=== PATIENT | female | born 1995 | race Caucasian/White ===

== ENCOUNTER 2019-05-09 22:55 | Emergency (ER) | payer MEDICAID, SELFPAY ==
[2019-05-09 23:12] VITALS: BP 132/93; PULSE 78; RESP 18; TEMP 36.7; O2SAT 100; BMI 31.4
--- NOTE | 2019-05-09 23:28 | USR_ITS ---
PROCEDURE INFORMATION: Exam: US First Trimester, Transabdominal and US , Transvaginal Exam date and time: 05/10/2019 12:08 AM Age: 23 years old Clinical indication: Lmp or gestational age (in weeks): 10w 1 day by lmp; Other: Spotting; ; Additional info: Vag bleed TECHNIQUE: Imaging protocol: Real-time transabdominal obstetrical ultrasound of the maternal pelvis and a first trimester , less than 14 weeks 0 days, with image documentation. Transvaginal imaging was used for better evaluation of the fetus and adnexa. COMPARISON: No relevant prior studies available. FINDINGS: GESTATION: Gestation: There is a yolk sac. Heart rate: cardiac activity is identified with a heart rate of 128 bpm. Placenta: Unremarkable. No subchorionic bleed. Amniotic fluid: Amniotic and coelomic fluid are normal for gestational age. BIOMETRY: Estimated gestational age: The calculated gestational age is 5 weeks 6 days [place]-Rump length: The crown-rump length is 0.29 cm. This gives a gestational age of 5 weeks 6 days. MATERNAL: Uterus: Unremarkable. Cervix: Unremarkable. Right adnexa: The right ovary is unremarkable in appearance measuring 2.0 x 1.5 x 2.3 cm. Subcentimeter right ovarian follicular cysts are noted. Right ovarian Doppler demonstrates appropriate waveforms. There is appropriate right ovarian color flow and no torsion. No adnexal fluid collection or mass. Left adnexa: The left ovary is unremarkable in appearance. There are subcentimeter left ovarian cyst. Left ovary measures 2.6 x 2.4 x 2.0 cm. Intraperitoneal: No intraperitoneal free fluid. US/US OB <= 14 weeks fetus [id number] IMPRESSION: Single live intrauterine gestation with good cardiac activity and calculated gestational age of 5 weeks 6 days.
[2019-05-09 23:44] VITALS: BP 133/68; PULSE 72; RESP 18; O2SAT 99
--- NOTE | 2019-05-09 23:46 | ED_ITS ---
HPI - General: Chief complaint: Vaginal Bleeding Stated complaint: CRAMPING,VAGINAL BLEEDING Time Seen by Provider: 05/09/19 23:12 Source: patient Mode of arrival: ambulatory Limitations: no limitations History of Present Illness: HPI Narrative: Patient comes in today for a 2-day history of low back pain and some vaginal spotting. Patient states that she was seen in the emergency department [place] last night and was diagnosed with urinary tract infection. Patient knows she is but does not know how far along she is and is concerned that she may be miscarrying. Date of Last Menstrual Period: 02/27/19 Related Data: : 3 Review of Systems General: Reports: 10 or more systems reviewed and unremarkable except in HPI and below : Reports: vaginal bleeding PFSH ED PFSH: Statuses (acute, chronic, etc) shown below reflect problem list status as previously entered and may not be historically accurate Social History Smoking and tobacco status: current every day smoker Female Reproductive History: Date of last menstrual period: 02/27/19 : 3 Physical Exam Const: COMMON NORMALS: no apparent distress and oriented x3 GENERAL APPEARANCE: cooperative HENMT: COMMON NORMALS: normocephalic, external ears normal, EAC's normal, TM's normal bilaterally and external nose normal HEAD & SCALP: normal to inspection and normocephalic FACE & SINUS: normal facial exam NOSE: external nose normal GENERAL EAR: hearing not grossly impaired EXTERNAL EAR: Yes external ears normal EXTERNAL AUDITORY CANAL: EAC's normal TYMPANIC MEMBRANE: TM's normal bilaterally MOUTH: oral and palatal mucosa normal THROAT: posterior oropharynx normal Eye: COMMON NORMALS: PERRL and EOMs intact bilaterally PUPIL: Yes PERRL Neck/C-Spine: COMMON NORMALS: full ROM and no lymphadenopathy Lymph: LYMPHATIC: no lymphedema noted Chest: COMMONS NORMALS: inspection of chest normal and palpation of chest normal Resp: COMMON NORMALS: normal respiratory effort and clear to auscultation bilaterally AUSCULTATION: clear to auscultation bilaterally Cardio: COMMON NORMALS: regular rate and regular rhythm RATE: regular rate RHYTHM: regular rhythm GI: COMMON NORMALS: normal to inspection, nondistended, normoactive bowel sounds and non-tender : COMMON NORMALS: Yes no CVA tenderness BLADDER/KIDNEY EXAM: Yes no CVA tenderness Back/Pelvis: COMMON NORMALS: no CVA tenderness and thoracic and lumbar spine normal to inspection Extremity: COMMON NORMALS: normal to inspection GENERAL: No edema Neuro: COMMON NORMALS: oriented x3, moves all extremities and no focal motor deficits Psych: COMMON NORMALS: mental status grossly normal and cooperative Skin: COMMON NORMALS: no rashes or lesions noted GENERAL SKIN EXAM: no rashes or lesions noted Course Vital Signs: Vital signs: Vital Signs Temperature 98.1 F 05/09/19 23:12 Pulse Rate 72 05/09/19 23:44 Respiratory Rate 18 05/09/19 23:44 Blood Pressure 133/68 05/09/19 23:44 Pulse Oximetry 99 05/09/19 23:44 MDM - OB/Uterine Contractions MDM Narrative: Medical decision making narrative: Patient comes in today due to vaginal spotting during first trimester . Exam notes respirations are even lungs are clear to auscultation. Abdomen is soft nontender. Bowel sounds are present. No signs of serious illness or injury was noted. Differential diagnosis includes threatened miscarriage, urinary tract infection, vaginitis. Laboratory values were insignificant. hCG level is above 5000 and at the level for between 5 and 6 weeks. Ultrasound noted a heart rate of 120 with a intrauterine and no signs of subchorionic hemorrhage. Reviewed exam with patient with recommendations for follow-up with GRAIN TRIMMER or return to the ER for worsening signs and symptoms. Patient reports understanding and agreed to plan. Lab Data: Labs: Lab Results 05/09/19 05/09/19 05/09/19 Range/Units 23:31 23:31 23:31 WBC 9.9 (4.0-10.0) 10^3/ uL RBC 4.13 (4.1-5.3) 10^6/u L Hgb 10.5 L (11.5-15.3) g/dL Hct 33.2 L (37.0-47.0) % MCV 80.4 L (81-99) fL MCH 25.4 L (28.0-34.0) pg MCHC 31.6 (30.0-36.0) g/dL RDW 15.1 (12.1-15.1) % Plt Count 389 (130-400) 10^3/c mm MPV 9.3 (7.4-10.4) fL Neut % (Auto) 70.4 % Lymph % (Auto) 22.5 % Barren % (Auto) 6.0 % Eos % (Auto) 0.7 % Baso % (Auto) 0.2 % Neut # (Auto) 6.9 (1.8-7.7) 10^3/u L Lymph # (Auto) 2.2 (0.8-4.8) 10^3/u L Barren # (Auto) 0.6 (0.2-0.9) 10^3/u L Eos # (Auto) 0.1 (0.0-0.8) 10^3/u L Baso # (Auto) 0.0 (0.0-0.1) 10^3/u L Nucleated RBC % (a uto) 0 % Nucleated RBCs # 0.0 /100WBC Sodium 137 (136-145) mmol/L Potassium 3.4 L (3.5-5.1) mmol/L Chloride 100 (98-107) mmol/L Carbon Dioxide 27 (22-29) mmol/L Anion Gap 13.4 (5-19) BUN 8 (6-20) mg/dL Creatinine 0.8 (0.5-0.9) mg/dL GFR Calculation 87.4 L (90-130) mL/min Glucose 90 (74-109) mg/dL Calcium 10.0 (8.5-10.5) mg/dL Total Bilirubin 0.2 (0.15-1.2) mg/dL AST 13 (0-32) U/L ALT 12 (0-33) U/L Alkaline Phosphata se 64 (35-105) IU/L Total Protein 7.7 (6.6-8.7) g/dL Albumin 4.2 (3.5-5.2) g/dL Globulin 3.5 (1.3-4.6) g/dL Ser , Jeremy i-Qnt 5423.00 mIU/mL Urine Color (Yellow) Urine Appearance (CLEAR) Urine pH (5-7) Ur Specific Gravit y (1.005-1.030) Urine Protein (Negative) Urine Glucose (UA) (Normal) Urine Ketones (Negative) Urine Occult Blood (Negative) Urine Nitrate (Negative) Urine Bilirubin (NEGATIVE) Urine Urobilinogen (Negative) mg/dL Ur Leukocyte Yudelka ase (Negative) Urine RBC (0-2) /hpf Urine WBC (0-5) /hpf Ur Squamous Epith Cells (0-5) Urine Bacteria (NONE) Blood Type A Positive 05/09/19 Range/Units 23:52 WBC (4.0-10.0) 10^3/ uL RBC (4.1-5.3) 10^6/u L Hgb (11.5-15.3) g/dL Hct (37.0-47.0) % MCV (81-99) fL MCH (28.0-34.0) pg MCHC (30.0-36.0) g/dL RDW (12.1-15.1) % Plt Count (130-400) 10^3/c mm MPV (7.4-10.4) fL Neut % (Auto) % Lymph % (Auto) % Barren % (Auto) % Eos % (Auto) % Baso % (Auto) % Neut # (Auto) (1.8-7.7) 10^3/u L Lymph # (Auto) (0.8-4.8) 10^3/u L Barren # (Auto) (0.2-0.9) 10^3/u L Eos # (Auto) (0.0-0.8) 10^3/u L Baso # (Auto) (0.0-0.1) 10^3/u L Nucleated RBC % (a uto) % Nucleated RBCs # /100WBC Sodium (136-145) mmol/L Potassium (3.5-5.1) mmol/L Chloride (98-107) mmol/L Carbon Dioxide (22-29) mmol/L Anion Gap (5-19) BUN (6-20) mg/dL Creatinine (0.5-0.9) mg/dL GFR Calculation (90-130) mL/min Glucose (74-109) mg/dL Calcium (8.5-10.5) mg/dL Total Bilirubin (0.15-1.2) mg/dL AST (0-32) U/L ALT (0-33) U/L Alkaline Phosphata se (35-105) IU/L Total Protein (6.6-8.7) g/dL Albumin (3.5-5.2) g/dL Globulin (1.3-4.6) g/dL Ser , Jeremy i-Qnt mIU/mL Urine Color Yellow (Yellow) Urine Appearance Cloudy (CLEAR) Urine pH 7 (5-7) Ur Specific Gravit y 1.010 (1.005-1.030) Urine Protein Neg (Negative) Urine Glucose (UA) Norm (Normal) Urine Ketones Negative (Negative) Urine Occult Blood 2+ H (Negative) Urine Nitrate Negative (Negative) Urine Bilirubin Neg (NEGATIVE) Urine Urobilinogen Norm (Negative) mg/dL Ur Leukocyte Yudelka ase 2+ H (Negative) Urine RBC 0-4 H (0-2) /hpf Urine WBC 0-4 H (0-5) /hpf Ur Squamous Epith Cells 0-4 H (0-5) Urine Bacteria 1+ H (NONE) Blood Type Discharge Plan Discharge Patient Disposition: Home, Self-Care Clinical Impression: Threatened miscarriage in early Discharge Orders: Discharge Order (Routine); Ordered 05/10/19 Ordered By: Pritesh Rocha Discharge Diet: Usual diet Discharge Activity: Resume usual activity Patient Instructions: Threatened Miscarriage (ED) Activity Restrictions/Additional Instructions: Drink plenty of water Acetaminophen for pain Heat packs for discomfort Follow-up with ob-java web services developer for further treatment Discharge Date/Time: 05/09/19 23:47 Coding Level of Care Code ED Absorber Operator for Sohail Caldwell Exam Problem Focused
[2019-05-09 23:59] LABS: Basophils % 0.2 %; Eosinophils # 0.1 10^3/uL (0.0-0.8); Eosinophils % 0.7 %; Hematocrit 33.2 % (37.0-47.0); Hemoglobin 10.5 g/dL (11.5-15.3); Lymphocytes # 2.2 10^3/uL (0.8-4.8); Lymphocytes % 22.5 %; Mean Corpuscular HGB Conc 31.6 g/dL (30.0-36.0); Mean Corpuscular Hemoglobin 25.4 pg (28.0-34.0); Mean Corpuscular Volume 80.4 fL (81-99); Mean Platelet Volume 9.3 fL (7.4-10.4); Monocytes # 0.6 10^3/uL (0.2-0.9); Neutrophils # 6.9 10^3/uL (1.8-7.7); Neutrophils % 70.4 %; Nucleated Red Blood Cells % 0 %; Platelet Count 389 10^3/cmm (130-400); Red Blood Count 4.13 10^6/uL (4.1-5.3); Red Cell Distribution Width 15.1 % (12.1-15.1); White Blood Count 9.9 10^3/uL (4.0-10.0)
[2019-05-10 00:20] LABS: Bacteria Urine 1+; Bilirubin Urine Neg (NEGATIVE); Blood Urine 2+ (Negative); Glucose Urine UA Norm (Normal); Ketones Urine Negative (Negative); Leukocyte Esterase Urine 2+ (Negative); Nitrate Urine Negative (Negative); Protein Urine Neg (Negative); RBC Urine 0-4 /hpf (0-2); Squamous Epithelial Cell Urine 0-4 (0-5); Urine Appearance Cloudy (CLEAR); Urine Color Yellow (Yellow); Urobilinogen Urine Norm (Negative); WBC Urine 0-4 /hpf (0-5); pH Urine 7 (5-7)
[2019-05-10 00:27] LABS: Alanine Aminotransferase 12 U/L (0-33); Albumin Level 4.2 g/dL (3.5-5.2); Alkaline Phosphatase 64 IU/L (35-105); Anion Gap 13.4 (5-19); Aspartate Amino Transferase 13 U/L (0-32); Blood Urea Nitrogen 8 mg/dL (6-20); Carbon Dioxide 27 mmol/L (22-29); Chloride 100 mmol/L (98-107); Globulin 3.5 g/dL (1.3-4.6); Glomerular Filtration Rate 87.4 mL/min (90-130); Glucose 90 mg/dL (74-109); Potassium 3.4 mmol/L (3.5-5.1); Sodium 137 mmol/L (136-145); Total Bilirubin 0.2 mg/dL (0.15-1.2); Total Protein 7.7 g/dL (6.6-8.7)
--- NOTE | 2019-05-12 09:58 | DCPLANNER ---
credit control manager had message to schedule a follow up appointment for patient with [facility]. credit control manager called [facility], spoke with Shannon, gave clinic patients information. credit control manager was told that patients information would be printed and reviewed. Clinic will call behavioral health case manager and patient with appointment information.
== END 2019-05-10 01:02 | disposition home or self-care (01) ==
LOC: ER 23:36
PROVIDERS: Emergency Provider Nurse Practitioner Family
DX: O20.0 Threatened abortion (principal); Z3A.01 Less than 8 weeks gestation of pregnancy; O99.331 Smoking (tobacco) complicating pregnancy, first trimester; F17.210 Nicotine dependence, cigarettes, uncomplicated
CPT/HCPCS: 36415; 76801; 80053; 81001; 84702; 85025; 86900; 99281; 99283

== ENCOUNTER 2021-01-16 09:31 | Outpatient (CLI) | payer MEDICAID, SELFPAY ==
[2021-01-16 11:25] LABS: Basophils % 0.1 %; Eosinophils # 0.1 10^3/uL (0.0-0.8); Eosinophils % 1.7 %; Hematocrit 30.4 % (37.0-47.0); Hemoglobin 9.4 g/dL (11.5-15.3); Lymphocytes # 1.3 10^3/uL (0.8-4.8); Lymphocytes % 15.9 %; Mean Corpuscular HGB Conc 30.9 g/dL (30.0-36.0); Mean Corpuscular Hemoglobin 25.2 pg (28.0-34.0); Mean Corpuscular Volume 81.5 fl (81-99); Monocytes # 0.5 10^3/uL (0.2-0.9); Monocytes % 5.9 %; Neutrophils # 6.16 10^3/uL (1.8-7.7); Neutrophils % 76.2 %; Nucleated Red Blood Cells % 0 %; Platelet Count 427 10^3/cmm (130-400); Red Blood Count 3.73 10^6/uL (4.1-5.3); Red Cell Distribution Width 23.6 % (12.1-15.1); Reticulocyte % 1.5 % (0.5-2.0); White Blood Count 8.1 10^3/uL (4.0-10.0)
[2021-01-16 12:05] LABS: Alanine Aminotransferase 14 U/L (0-33); Albumin Level 3.3 g/dL (3.5-5.2); Alkaline Phosphatase 57 IU/L (35-105); Anion Gap 13.1 (5-19); Aspartate Amino Transferase 12 U/L (0-32); Blood Urea Nitrogen 5 mg/dL (6-20); Calcium 8.5 mg/dL (8.5-10.5); Carbon Dioxide 29 mmol/L (22-29); Chloride 102 mmol/L (98-107); Ferritin 221 ng/mL (15-150); Globulin 3.8 g/dL (1.3-4.6); Glomerular Filtration Rate 191.5 mL/min (90-130); Glucose 75 mg/dL (65-115); Iron 14 ug/dL (37-145); Osmolality Calculated 288 mOsm/kg (285-295); Percent Saturation 7.2 % (20-50); Potassium 3.1 mmol/L (3.5-5.1); Sodium 141 mmol/L (136-145); Total Bilirubin 0.4 mg/dL (0.15-1.2); Total Iron Binding Capacity 192 mcg/dl; Total Protein 7.1 g/dL (6.6-8.7); Unsaturated Iron Binding 178 ug/dL (112-347)
[2021-01-16 12:20] LABS: Vitamin B12 409 pg/mL (232-1245)
--- NOTE | 2021-01-18 18:36 | ONC CON_ITS ---
Dr. Morales New Patient Note Patient: Linsey Lux Unit #: [id number]: [id number] Dicatated By: Julia Morales M.D.Date of Visit: Jan 16, 2021 Onc MED New Patient/Consult Referring Physician: Major Alcaraz N.P. History of Present Illness: Ms. Linsey Lux, is a 25-year-old female with a history of iron deficiency anemia, diagnosed during , at that time, at that time patient took oral iron but could not tolerate due to GI intolerance. As per patient she tried again couple of times but every time it would give her, epigastric pain, indigestion, nausea. As per patient in November 2020, she developed progressive shortness of breath, palpitation on exertion subsequently abdominal fullness and pain, patient has history of irritable bowel syndrome so she went to hospital in [place], where she underwent CT scan of abdomen, as per patient there was a concern for perforation so she was airlifted to hospital in [place] where she underwent blood transfusion and also given iron infusion x1, with that she felt better, while she was treated with supportive care, colonoscopy was considered but patient signed out AMA and subsequently her follow-up labs done in [facility] office on November 28, 2020 which showed hemoglobin around 11 g while she is being treated with oral Flagyl and Cipro, patient was referred to general surgery in [facility], her repeat lab work-up done on December 26, 2020 showed iron 17, iron saturation 7%, TIBC 229, creatinine 0.67 albumin 3.3 otherwise normal CMP repeat labs done on January 02, 2021 showed white blood count 7.8, hemoglobin 10.1 g medical 33.7 MCV 79.3, platelets 469,000, as per patient she was given oral iron but she could not tolerate, then her primary care physician try to give her parenteral iron but somehow her insurance did not approve it so she was referred to hematology clinic for evaluation and management. Patient has history of chronic back pain due to arthritis for which she take meloxicam She also history of GERD,, anxiety disorder. Family history significant for Crohn's disease in maternal uncle and great-grandmother. , No fever chills, no melena hematochezia, no hemoptysis or hematemesis but off-and-on history of constipation alternating with diarrhea, patient attributed that to her irritable bowel syndrome. Denies any history of heavy menstrual in fact they are irregular. Denies any history of jaundice, denies any history of hematuria, denies any history of hemorrhoids. Denies any night sweats, denies any weight loss, denies any history of hemoptysis or hematemesis. Past Medical History: Ms. Lux's medical history consists of anxiety, bipolar depression, gastroesophageal reflux disease, irritable bowel syndrome, and migraine headaches. Past Surgical History: Ms. Lux's surgical history is unremarkable. Medications: Meloxicam 1 Tablet (of 7.5 mg) Oral daily Allergies: No Known Allergies. Social History: Ms. Lux is . She is a daily smoker who smokes 1.0 pack/day. She has no history of drinking. Family History: There is no documented family history. Review Of Symptoms: Review of Systems is not available for this patient. Vital Signs: Performed on Jan 16, 2021 12:10: 0, 0, 23.63, 1.51 sq.m, 60 in, 99 %, 76 /min, 18 /min, 122/84 mm(hg), 98.3 F (LOW), and 121 lbs (HIGH). Performance Status: 0 - Fully active, able to carry on all predisease activities without restrictions. (ECOG) Physical Examination: ENMT - No mouth sores, no thrush, no jaundice, pale conjunctiva, Respiratory - Lungs are clear to auscultation, Cardiovascular - Regular rate and rhythm of heart, Abdomen - Soft, bowel sounds present, Extremities - No visible edema. Lab/Imaging: Most recent lab results are not available for this patient. Impression: Microcytic hypochromic anemia due to iron deficiency which could be due to chronic malabsorption versus chronic GI blood loss status post 2 units of packed RBC and iron infusion For symptomatic anemia, during hospitalization in [place] in November 2020 History of iron deficiency during , tried oral iron but discontinued due to GI intolerance History of irritable bowel syndrome History of anxiety/depression History of chronic back due to arthritis, on NSAIDs Plan: Discussed with patient regarding her labs white blood count 8.1 hemoglobin 9.4 g medical 30.4 platelets 427,000 MCV 81.5 reticulocyte count 1.5, Clinically, patient has mild generalized weakness and fatigue probably due to progressive iron deficiency anemia, etiology remains unclear e.g. malabsorption versus chronic GI blood loss, work-up is in progress, as per patient she is scheduled for EGD and colonoscopy on February 01, 2021 in [place], now being followed by general surgery in [place] for possible GI pathology as patient was referred to [facility] from her local hospital with impression of GI perforation or Crohn's disease or appendicitis but patient signed out AMA without completing work-up so she was referred to general surgery in [place] for further evaluation. At this point, due to progressive iron deficiency anemia, and history of GI intolerance to oral iron, recently she was given parenteral iron which she tolerated well with good response, hemoglobin gone up to 11 g, she was also given blood transfusion., Will consider Injectafer 750 mg IV weekly x2, She return to clinic 1 month after second dose with CBC and iron studies, by that time she will have EGD and colonoscopy done, will review that too. Signed By: Julia Morales M.D. <<Signature on File>>
== END 2021-01-16 09:32 | disposition home or self-care (01) ==
LOC: ONCMED 09:36
PROVIDERS: Visit Provider Internal Medicine Hematology & Oncology
DX: D50.9 Iron deficiency anemia, unspecified (principal); K58.9 Irritable bowel syndrome, unspecified; F17.210 Nicotine dependence, cigarettes, uncomplicated; F41.9 Anxiety disorder, unspecified; F32.9 Major depressive disorder, single episode, unspecified; M47.9 Spondylosis, unspecified; Z79.1 Long term (current) use of non-steroidal anti-inflammatories (NSAID)
CPT/HCPCS: 36415; 80053; 82607; 82728; 83540; 83550; 85025; 85045; 99205

== ENCOUNTER → 2021-06-21 14:54 | Outpatient (BNVA) | payer MEDICAID, SELFPAY | PROVIDERS: Visit Provider Surgery | DX: Z11.52 Encounter for screening for COVID-19 (principal); Z20.822 Contact with and (suspected) exposure to COVID-19 | CPT/HCPCS: 87635 ==

== ENCOUNTER 2021-06-22 08:17 | Day surgery (SDC) | payer MEDICAID, SELFPAY ==
[2021-06-21 10:53] VITALS: BMI 18.3
--- NOTE | 2021-06-22 08:39 | P.ANESASSM_ITS ---
Pre-Anesthetic Assessment Height/Weight: Height 1.52 m Weight 42.638 kg Preop Diagnosis: Nausea vomiting and abdominal pain Operation Date: 06/22/21 10:00 Proposed Procedures p EGD 74757/r10.9/r63.4(Not Applicable) - Nestor Chan MD Familial anesthetic complications: Recalls some discomfort/pain during colonoscopy in [place] Was Beta Patricio taken within 24 hours: N/A (D/C propanolol due to low blood pressure ) Was Clonidine taken within 24 hours: N/A Social Tobacco and No alcohol Exam alert, oriented x 3, clear to auscultation bilaterally and regular rate & rhythm Airway Submandibular: within normal limits Cervical ROM: within normal limits Mallampati: Class II Dentition: chipped Pulmonary None reported CV/HEM None reported None reported Hepatic None reported GI None reported Metabolic None reported Musc/skel None reported Neuropsych Anxiety Anesthetic Plan ASA status: 2 Anesthesia: Anesthesia Evaluation Other: I discussed with the patient risks, goals, and benefits of MAC and general anesthesia. We discussed spectrum of MAC anesthesia including conversion to general as well as possibility of recall of intraoperative stimuli including discomfort/pain. Patient notes did have some pain/discomfort with a prior colonoscopy. Patient agrees to proceed with MAC today. Risk of > 500 ml blood loss (7ml/kg in children): No Medications/Allergies Home Medications Medication Instructions Recorded Confirmed Last Taken Type omeprazole 40 mg capsule,delayed 40 mg PO DAILY 05/24/21 06/21/21 Unknown History release prednisone 20 mg tablet 20 mg PO DAILY 05/24/21 06/21/21 Unknown History propranolol 40 mg tablet 20 mg PO BID 05/24/21 06/21/21 Unknown History sucralfate 1 gram tablet 1 g PO BID 05/24/21 06/21/21 Unknown History potassium chloride 20 mEq 20 meq PO BID 06/21/21 06/21/21 Unknown History tablet,extended release(part/cryst) (Klor-Con M) Allergies Allergy/AdvReac Type Severity Reaction Status Date / Time No Known Allergies Allergy Verified 06/21/21 10:53 [facility] Anesthesia Social History Smoking and tobacco status: current every day smoker Female Reproductive History Date of last menstrual period: 05/10/21 Data Anesthesia Cardiac Studies: No Data to Display
--- NOTE | 2021-06-22 08:55 | W.PM.OPSFHP ---
Same Day Surgery H&P Indication for Procedure/HPI DATE OF PROCEDURE: June 22, 2021 CHIEF COMPLAINT/INDICATIONFOR SURGICAL PROCEDURE: Abdominal pain PREOP DIAGNOSIS: Nausea vomiting and abdominal pain PLANNED PROCEDURE: Operation Date: 06/22/21 10:00 Proposed Procedures p EGD 47065/r10.9/r63.4(Not Applicable) - Nestor Chan MD 05/24/2021 This is a pleasant 25 years old female patient presents to my practice with history of abdominal pain mostly in the right upper quadrant being dull and sometimes burning and often times she feels a knot in addition that it is being referred to the lower abdomen.? Patient undergone laparoscopic appendectomy back in February 2021 and she was diagnosed with iron deficiency anemia also.? Back in January 2021 undergone a colonoscopy that was reported as normal per patient's description.? Patient gives history of persistent nausea vomiting and diarrhea nonbloody in nature. Patient reports history of diarrhea, nonbloody in nature, has been going on for quite some time.? Patient denies history of recent travels, antibiotics, change in medications, questionable source of water, no history of sick contacts, no history of thyroid disorders.? Patient was told that she may have Crohn's disease and I do not have any available outside records unfortunately.? Also reports that she had a laparoscopic cholecystectomy back in 2012.? Patient reports that she had an MRI and she was told that her small bowel were inflamed. is scheduled to see a medical research quality assurance specialist in December 2021 she feels uncomfortable and she would like to be evaluated early and thus she is referred to me today for consideration of diagnostic EGD 06/22/2021 Patient comes today for diagnostic EGD. Patient had colonoscopy that was done on 02/01/2021 and per reporting normal biopsies were obtained. MRI enterography was done on 03/14/2021 that showed long segment of terminal ileum demonstrating abnormal features including wall and fold thickening as well as adjacent fat infiltration. Mild distention of small bowel proximal to the thickened segment. Although a component of residual effect from history of perforated appendicitis and resection over the last several months cannot be excluded. The degree of wall thickening of some loops in the extent of abdominal suggest underlying bowel pathology such as Crohn's disease. Right adnexal structure most likely representing an enlarged ovary contained multiple cysts. Pelvic ultrasound in 6 months recommended for further assessment. ROS All systems have been reviewed negative except as per the above or per problem list Medications/Allergies* Home Medications Medication Instructions Recorded Confirmed Type omeprazole 40 mg capsule,delayed 40 mg PO DAILY 05/24/21 06/21/21 History release prednisone 20 mg tablet 20 mg PO DAILY 05/24/21 06/21/21 History propranolol 40 mg tablet 20 mg PO BID 05/24/21 06/21/21 History sucralfate 1 gram tablet 1 g PO BID 05/24/21 06/21/21 History potassium chloride 20 mEq 20 meq PO BID 06/21/21 06/21/21 History tablet,extended release(part/cryst) (Klor-Con M) Allergies/Adverse Reactions Allergy/AdvReac Type Severity Reaction Status Date / Time No Known Allergies Allergy Verified 06/22/21 08:56 Pertinent History/Comorbid Conditions* Social History Smoking and tobacco status: current every day smoker Pertinent Exam Findings alert, oriented x 3, regular rate & rhythm and procedure specific exam findings (Abdominal examination nontender nondistended soft) Recommendations Surgery/Procedure today (Diagnostic EGD with possible biopsy) Coding Level of Care Code Acute Financial Aid for Sohail Caldwell
[2021-06-22 09:00] VITALS: BP 140/109; PULSE 109; RESP 20; TEMP 36.1; O2SAT 100
[2021-06-22] MEDS: sodium chloride 0.9% 1,000 ML 30 ML IV (09:07)
[2021-06-22 10:45] VITALS: BP 139/99; PULSE 101; RESP 16; TEMP 36.7; O2SAT 97
[2021-06-22 10:51] VITALS: BP 142/103; PULSE 92; RESP 18; O2SAT 99
[2021-06-22 11:03] VITALS: BP 129/89; PULSE 82; RESP 18; O2SAT 99
--- NOTE | 2021-06-22 11:28 | PC.NURSE ---
After IV removal patient began complaining of moderate stomach pain. Patient evaluated by Dr. Thomas and patient was offered an extended recovery period for observation in GI post op. Patient declined at this time and opted for discharge. Patient given instructions to call hospital yarn mercerizer operator to contact Dr. Chan if symptoms worsen.
--- NOTE | 2021-06-22 12:55 | ANE.PACU2 ---
Inpatient post-anesthesia follow up: Airway intact: Yes Vital signs: Temperature 98.0 F Pulse Rate 82 Respiratory Rate 18 Blood Pressure 129/89 Pulse Oximetry 99 Oxygen Delivery Me thod Room Air Oxygen Flow Rate Fraction of Inspir ed Oxygen Hydration adequate: Yes Nausea and vomiting: No Pain level: 1 Mental status: Baseline
== END 2021-06-22 11:28 | disposition home or self-care (01) ==
PROVIDERS: PCP Family Medicine; Visit Provider Surgery
PROC: 0DJ08ZZ Inspection of Upper Intestinal Tract, Via Natural or Artificial Opening Endoscopic (ICD-10-PCS; CPT 43235; principal; 2021-06-22 10:00)
DX: R11.2 Nausea with vomiting, unspecified (principal); R10.9 Unspecified abdominal pain; K29.70 Gastritis, unspecified, without bleeding; F17.210 Nicotine dependence, cigarettes, uncomplicated; F41.9 Anxiety disorder, unspecified
CPT/HCPCS: 43239; 88305; 88342; J2704; J7030

== ENCOUNTER → 2022-11-15 15:12 | Outpatient (BNVA) | payer MEDICAID, SELFPAY | PROVIDERS: PCP Family Medicine; Referring Provider Nurse Practitioner Family; Visit Provider Physician Assistant | DX: M47.816 Spondylosis without myelopathy or radiculopathy, lumbar region (principal); Z72.0 Tobacco use | CPT/HCPCS: 72110 ==